=== PATIENT | male | born 1995 | race Caucasian/White ===

== ENCOUNTER 2019-01-24 08:23 | Emergency (ER) | payer BC ==
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
--- NOTE | 2019-01-24 09:55 | CR ---
Indication: Injury and pain. Technique: Right knee 3 views Comparison: None Findings: Bones: Alignment is normal. No fractures or bone lesions. Joint spaces: No joint effusion. Joint spaces are well maintained. No degenerative changes. Soft tissues: Unremarkable. Impression: No sign of acute injury. Dictated by Fernando Collins MD @ Jan 24 2019 9:52AM Signed by Dr. Fernando Collins @ Jan 24 2019 9:53AM
--- NOTE | 2019-01-24 09:57 | CR ---
Indication: Injury and pain Technique: Right ankle 3 views. Comparison: None Findings: Bones: Alignment is normal. No fractures or bone lesions. Joint spaces: Unremarkable. Soft tissues: Unremarkable. Impression: No sign of acute injury. Dictated by Fernando Collins MD @ Jan 24 2019 9:53AM Signed by Dr. Fernando Collins @ Jan 24 2019 9:55AM
== END 2019-01-24 10:16 | disposition home or self-care (01) ==
LOC: MW.ED 08:23
DX: S99.911A Unspecified injury of right ankle, initial encounter (principal); M25.561 Pain in right knee; W31.89XA Contact with other specified machinery, initial encounter
CPT/HCPCS: 73562-26-RT; 73562-RT; 73610-26-RT; 73610-RT; 99283; 99283-25